=== PATIENT | female | born 2000 | race Two or more races ===

== ENCOUNTER 2024-04-18 20:42 | Emergency (ER) | payer MEDICAID, SELFPAY ==
[2024-04-18 20:46] VITALS: BMI 28.3
--- NOTE | 2024-04-18 21:07 | EKG_ITS ---
[facility] Test Date: 2024-04-18 Pat Name: MORGAN RIOS Department: Room: - Gender: Female [employer] Administrator: : 2000 Requested By: Ugo Dubose ([facility]) Order Number: [id number] Reading MD: Ugo Dubose ([facility]) Measurements Intervals Connell Rate: 139 P: 32 HI: 84 QRS: 37 QRSD: 74 T: 20 QT: 254 QTc: 387 Interpretive Statements SINUS TACHYCARDIA WITH SHORT HI INTERVAL ABNORMAL RHYTHM ECG No previous ECG available for comparison /store/S0/[id number]/ecg/[id number].pdf
[2024-04-18 21:12] VITALS: BP 131/75; PULSE 135; RESP 20; TEMP 39.6; O2SAT 95
--- NOTE | 2024-04-18 21:17 | XR_ITS ---
Examination: PA lateral chest 2 views Technique: Upright PA lateral chest 2 views Exam date and time: April 18, 20242 hrs. Indications: Sepsis protocol. Findings: Normal heart size Lungs are clear The osseous structures are intact Impression: No active disease
--- NOTE | 2024-04-18 21:17 | XR_ITS ---
Examination: CT abdomen and pelvis without contrast. Coronal 3-D reconstructions. Sagittal 2-D reconstructions. Date and time of exam:April 18, 2024 1033 hrs. Indications: Fever right lower abdominal pain right flank pain today CTDI: vol (mGy): 7.04 DLP: (mGycm): 403 Technique: Axial images of the abdomen have been obtained, 3 mm slice thickness Intravenous contrast material has not been administered. Low dose protocols were performed. One or more of the following dose reduction techniques were used; automated exposure control, adjustment of the mA and/or KV according to patient size, use of iterative reconstruction technique. Findings: Diffuse fatty infiltration throughout the liver Contracted gallbladder Spleen not enlarged No pancreatic mass 2 mm nonobstructing right renal calculus, right perinephric stranding Aorta normal size No bowel obstruction No CT findings of appendicitis No diverticulitis Anteverted uterus Mild free fluid in the pelvis Urinary bladder intact Impression: 2 mm nonobstructing right renal calculus Right perinephric stranding with no ureteral calculi, consider right urinary tract infection No CT findings of appendicitis or bowel obstruction
--- NOTE | 2024-04-18 21:43 | PD.EDRME ---
Rapid Medical Screening Exam [facility] Arrival date/time: 04/18/24 20:42 24-year-old female presents emergency department complaining of fever and abdominal pain. She reports taking antibiotics for UTI. Chief Complaint: Abdominal Pain Vital signs: Vital Signs Temperature 103.2 F H 04/18/24 21:12 Pulse Rate 135 H 04/18/24 21:12 Respiratory Rate 20 04/18/24 21:12 Blood Pressure 131/75 H 04/18/24 21:12 Pulse Oximetry (%) 95 04/18/24 21:12 Oxygen Delivery Method Room Air 04/18/24 21:12 Vital signs reviewed by provider: Yes
[2024-04-18 21:54] LABS: Lactate (Lactic Acid) 1.9 mMol/L (0.4-2.0)
[2024-04-18 22:00] VITALS: BP 114/67; PULSE 125; RESP 18; TEMP 39.6; O2SAT 99
[2024-04-18] MEDS: ACETAMINOPHEN 500 MG TABLET 1000 MG PO (22:00)
[2024-04-18 22:02] LABS: Basophils # (Auto) 0.1 Thou/mm3 (0.0-0.2); Basophils % (Auto) 0 % (0-2.5); Eosinophils % (Auto) 0 % (0-10); Hematocrit 35.1 % (36.0-46.0); Hemoglobin 11.6 g/dL (12.0-16.0); Immature Granulocytes % (Auto) 1 % (0-0); Immature Granulocytes Auto 0.07 Thou/mm3 (0.00-0.00); Lymphocytes # (Auto) 1.9 Thou/mm3 (1.0-4.8); Lymphocytes % (Auto) 14 % (10-50); Mean Corpuscular Hemoglobin 27.3 pg (25.0-35.0); Mean Corpuscular Volume 83 fL (80-100); Monocytes # (Auto) 1.3 Thou/mm3 (0.0-0.8); Monocytes % (Auto) 9 % (0-12); Neutrophils # (Auto) 10.9 Thou/mm3 (1.8-7.7); Neutrophils % (Auto) 76 % (37-80); Nucleated Red Blood Cell % 0 /100 WBC (0); Platelet Count 312 Thou/mm3 (140-440); RDW Standard Deviation 38.5 fL (36.4-46.3); Red Blood Count 4.25 Miln/mm3 (4.00-5.20); White Blood Count 14.2 Thou/mm3 (3.6-11.0)
[2024-04-18 22:07] LABS: HCG,Qualitative Serum Negative
[2024-04-18 22:10] LABS: Partial Thromboplastin Time 28.5 Seconds (22.0-36.0); Prothrombin Time 11.4 Seconds (9.0-12.2)
[2024-04-18 22:12] LABS: B-Type Natriuretic Peptide < 20 pg/mL (0-100)
[2024-04-18 22:28] LABS: Alanine Aminotransferase 23 U/L (10-49); Albumin/Globulin Ratio 1.6 (1.2-2.2); Alkaline Phosphatase 77 U/L (46-116); Anion Gap 8 (7-16); Aspartate Amino Transferase 15 U/L (0-34); BUN/Creatinine Ratio 11 Ratio (12-20); Bilirubin,Total 0.5 mg/dL (0.3-1.2); Blood Urea Nitrogen 9 mg/dL (9-23); Calcium 10.3 mg/dL (8.3-10.6); Calcium (Corrected) 10.3 mg/dL (8.5-10.1); Carbon Dioxide 25.1 mMol/L (20.0-31.0); Chloride 101 mMol/L (98-107); Creatinine (Component) 0.8 mg/dL (0.6-1.3); Globulin 3.2 gm/dL (2.3-3.5); Glucose 156 mg/dL (74-106); Lipase 29 U/L (12-53); Magnesium 1.8 mg/dL (1.6-2.6); Osmolality,Calculated 269 (275-295); Phosphorous 1.6 mg/dL (2.4-5.1); Potassium 3.6 mMol/L (3.4-5.1); Procalcitonin 0.21 ng/ml (0.0-0.49); Sodium 134 mMol/L (136-145); Total Protein 8.2 gm/dL (5.7-8.2); Troponin I < 0.002 ng/mL (0.0-0.045); eGFR > 60 See Note
--- NOTE | 2024-04-18 22:46 | EDNOTE_ITS ---
ED General RME/HPI General Chief complaint: Abdominal Pain Stated complaint: FEVER, RIGHT LOWER ABDOMINAL PAIN Time Seen by Provider: 04/18/24 22:22 Arrival date/time: 04/18/24 20:42 RME / HPI RME / HPI narrative: 04/18/24 20:42 24-year-old female presents emergency department complaining of fever and abdominal pain. She reports taking antibiotics for UTI. ------ Dr. Pollock?s Main ED Evaluation: 24yo female with no significant past medical or surgical history presents to the ED for a chief complaint of back pain. Patient states she's had nocturia and frequency for the last 4 days, reporting she goes to the restroom ~3-4x per night. She denies any dysuria, hematuria, foul- smelling urine, N/V/D, runny nose, cough or any other associated symptoms. Denies any tobacco, alcohol or illicit drug use. No known allergies. Related Data Previous Rx's ?Medication ?Instructions ?Recorded cephalexin 500 mg capsule 500 mg PO BID 7 days #14 caps 04/19/24 ondansetron 4 mg disintegrating 4 mg PO Q8H PRN nausea and 04/19/24 tablet vomiting #10 tabs Allergies Allergy/AdvReac Type Severity Reaction Status Date / Time No Known Allergies Allergy Verified 04/18/24 20:47 Review of Systems Review of Systems Systems Reviewed: All systems reviewed, normal except as documented Past Medical History Past Medical History CARDIAC: Negative Congestive Heart Failure RESPIRATORY: Negative Chronic Obstructive Pulmonary Disease (COPD) GENITOURINARY: Negative Renal Disease ENDOCRINE: Negative Diabetes Mellitus Type 1 or Diabetes Mellitus Type 2 Social History SMOKING STATUS: Never smoker ED Exam Narrative Physical exam: GENERAL APPEARANCE: AxOx4, generally well-appearing, no acute distress. HEENT: NC, AT. MMM. EOMI, clear conjunctiva, oropharynx clear. NECK: Supple without lymphadenopathy. No stiffness or restricted ROM. HEART: Normal rate and regular rhythm, normal S1/S1, no m/r/g LUNGS: CTAB, moving air well. No crackles or wheezes are heard. ABDOMEN: Soft, nontender, no anterior abdominal tenderness, nondistended with good bowel sounds heard. BACK: No midline C/T/L spine pain or deformity, Right CVAT, no obvious deformity. EXTREMITIES: Without cyanosis, clubbing or edema. MUSCULOSKELETAL: FROM of all major joints, no chest tenderness NEUROLOGICAL: Grossly nonfocal. Alert and oriented, moving all 4 extremities. CN not formally tested but appear grossly intact. Observed to ambulate with normal gait. Skin: Warm and dry without any rash. Course Course Course Narrative: CXR is ordered for determining the etiology of fever. 2115: Sepsis alert initiated. Orders made at this time are congruent with ED Adult Sepsis Order List. Re-evaluation is to be completed. 2315: NS IVF started. 0043: Sepsis reassessment performed consisting of lab review, vitals, physical exam including auscultation of heart, lungs, and visual evaluation of capillary refills, mucosal membranes and extremities. Quality Measures Current suspected stage: ruled out Possible source: genitourinary Blood cultures ordered: yes Antibiotic ordered: Yes Pertinent labs: 04/18/24 21:36 Lactic Acid 1.9 mMol/L (0.4-2.0) Procalcitonin 0.21 ng/ml (0.0-0.49) sepsis Orders Category Date Time Status Continuous Pulse Oximetry STAT Care 04/18/24 21:17 Completed EKG (ED ONLY) *Do not use* NOW Care 04/18/24 21:[address] abdomen pelvis wo con Stat Exams 04/18/24 21:17 Completed EKG (ED Only) Stat Exams 04/18/24 21:07 Draft XR chest 2V Stat Exams 04/18/24 21:17 Completed B-Type Natriuretic Peptide Stat Lab 04/18/24 21:36 Completed Blood Culture (Lab) Stat Lab 04/18/24 21:41 Received CBC Stat Lab 04/18/24 21:36 Completed Comprehensive Metabolic Panel Stat Lab 04/18/24 21:36 Results HCG,Qualitative Serum Stat Lab 04/18/24 21:36 Results LDH (Lactate Dehydrogenase) Stat Lab 04/18/24 21:36 Results Lactate (Lactic Acid) Stat Lab 04/18/24 21:36 Completed Lipase Stat Lab 04/18/24 21:36 Results Magnesium Stat Lab 04/18/24 21:36 Results Partial Thromboplastin Time Stat Lab 04/18/24 21:36 Completed Phosphorous Stat Lab 04/18/24 21:36 Results Procalcitonin Stat Lab 04/18/24 21:36 Results Prothrombin Time with INR Stat Lab 04/18/24 21:36 Completed Troponin I Stat Lab 04/18/24 21:36 Results Urinalysis, C/S if Indicated Stat Lab 04/18/24 23:08 Completed Urine Culture Stat Lab 04/18/24 23:08 Received Acetaminophen Tab [Tylenol ES Tab] Med 04/18/24 21:18 Discontinued 1,000 mg PO X1 ONE Sodium Chloride 0.9% 1000 ml [Ns] 1,000 ml Med 04/18/24 22:46 Discontinued IV 999 mls/hr cefTRIAXone/D5w 1gm IV premix [Rocephin/D5w 1gm IV Med 04/19/24 00:00 Discontinued premix] 50 ml IV X1 Vital Signs Vital signs: Vital Signs Temperature 103.2 F H 04/18/24 21:12 Pulse Rate 135 H 04/18/24 21:12 Respiratory Rate 20 04/18/24 21:12 Blood Pressure 131/75 H 04/18/24 21:12 Pulse Oximetry (%) 95 04/18/24 21:12 Oxygen Delivery Method Room Air 04/18/24 21:12 Pulse ox is 95% on room air, according to my interpretation. [facility] Patient data External records reviewed:: [facility] previous records (Per chart review, patient has no previous previous ED visits to this facility.) Clinical information provided by:: patient Social determinants that could affect healthcare access:: none Patient has the following chronic illnesses:: none How is presenting disease/condition affected by chronic disease/condition?: no chronic disease Evaluation data The following diagnostics were reviewed and interpreted by me:: lab results, radiology exam(s) and EKG tracing(s) Lab and/or radiology exams considered but not ordered:: none Interpretation Summary: WBC count is elevated at 14.2, Lactate is normal, Magnesium is normal, Lipase is normal, Procalcitonin is normal, troponin is normal, according to my interpretation. EKG done at 1 shows sinus tachycardia, rate of 139, normal intervals, normal axis, no acute ST or T wave changes, no STEMI, according to my interpretation. ------ [facility] Report Signed Patient: MORGAN RIOS [facility]. Record#: [id number] Birthdate: 2000 Age/Sex: 24 / F [facility] Attending Dr: Ordering Physician: Marybel Dubose (BONE DENSITY TECHNICIAN),Ugo BONE DENSITY TECHNICIAN Date of Service: 04/18/24 Procedure(s): XR chest 2V Accession Number(s): [id number] cc: Antonino Colon MD; Marybel Dubose (BONE DENSITY TECHNICIAN),Ugo BONE DENSITY TECHNICIAN~ Examination: PA lateral chest 2 views Technique: Upright PA lateral chest 2 views Exam date and time: April 18, 2024 2122 hrs. Indications: Sepsis protocol. Findings: Normal heart size Lungs are clear The osseous structures are intact Impression: No active disease Dictated By: Antonino Colon MD Signed By: <Electronically signed by Antonino Colon MD in OV> 04/18/242219 ------ [facility] Report Signed Patient: MORGAN RIOS Record#: [id number] Birthdate: 2000 Age/Sex: 24 / F Location: [facility] Attending Dr: Ordering Physician: Marybel Dubose (BONE DENSITY TECHNICIAN)Ugo Date of Service: 04/18/24 Procedure(s): CT abdomen pelvis wo con Accession Number(s): [id number] cc: Antonino Colon MD; Marybel Dubose (BONE DENSITY TECHNICIAN),Ugo BONE DENSITY TECHNICIAN~ Examination: CT abdomen and pelvis without contrast. Coronal 3-D reconstructions. Sagittal 2-D reconstructions. Date and time of exam:April 18, 2024 1033 hrs. Indications: Fever right lower abdominal pain right flank pain today CTDI: vol (mGy): 7.04 DLP: (mGycm): 403 Technique: Axial images of the abdomen have been obtained, 3 mm slice thickness Intravenous contrast material has not been administered. Low dose protocols were performed. One or more of the following dose reduction techniques were used; automated exposure control, adjustment of the mA and/or KV according to patient size, use of iterative reconstruction technique. Findings: Diffuse fatty infiltration throughout the liver Contracted gallbladder Spleen not enlarged No pancreatic mass 2 mm nonobstructing right renal calculus, right perinephric stranding Aorta normal size No bowel obstruction No CT findings of appendicitis No diverticulitis Anteverted uterus Mild free fluid in the pelvis Urinary bladder intact Impression: 2 mm nonobstructing right renal calculus Right perinephric stranding with no ureteral calculi, consider right urinary tract infection No CT findings of appendicitis or bowel obstruction Dictated By: Antonino Colon MD Signed By: <Electronically signed by Antonino Colon MD in OV> 04/18/24 2214 Medications Medications considered but not ordered:: none Medication administrations:: Medication Administration History Discontinued Medications Acetaminophen (Acetaminophen 500 Mg Tablet) 1,000 mg PO X1 ONE Stop: 04/18/24 21:19 Last Admin: 04/18/24 22:00 Dose: 1,000 mg Documented By: VICENTE Sodium Chloride (Ns) 1,000 mls @ 999 mls/hr IV .Q1H1M ONE Stop: 04/18/24 23:46 Last Infusion: 04/19/24 00:13 Dose: Infused Documented By: Admin: 04/18/24 23:15 Dose: 999 mls/hr Documented By: VICENTE Ceftriaxone Sodium/Dextrose (Rocephin/D5w 1gm Iv Premix) 50 mls @ 100 mls/hr IV X1 ONE Stop: 04/19/24 00:29 Last Admin: 04/19/24 00:26 Dose: 100 mls/hr Documented By: VICENTE see above Consultations Consultation(s) initiated? (list below): No Diagnosis Differential Diagnosis ED Complaint MDM: UTI, pyelonephritis, cystitis Most likely diagnosis given after review of the tests above:: pyelonephritis Admission Indicated Admission indicated?: not indicated Explain why admission is indicated or not indicated:: Patient is stable for outpatient antibiotics. Admission Request Was there a request for admission?: No Disposition Plan Disposition Plan: Discharge Discharge Attestation Discharge Attestation: The patient and all family members were given an opportunity to ask questions and understood the discharge instructions. Discharge instructions specifically effects, indications for sooner follow up or return to the emergency department, and the expected course of current diagnosis. Patient condition: Stable Medical Decision Making MDM Narrative MDM Narrative: Scribe Attestation: 04/18/24 Penny Parham, scribing for and in the presence of Dr. Pollock. Differential Diagnosis Differential Diagnosis: UTI, pyelonephritis, cystitis Lab Data 04/18/24 21:36 04/18/24 21:36 Labs: Lab Results 04/18/24 04/18/24 Range/Units 21:36 23:08 WBC 14.2 H (3.6-11.0) Thou/mm3 RBC 4.25 (4.00-5.20) Miln/mm3 Hgb 11.6 L (12.0-16.0) g/dL Hct 35.1 L (36.0-46.0) % MCV 83 (80-100) fL MCH 27.3 (25.0-35.0) pg MCHC 33.0 (31.0-37.0) g/dl RDW Std Deviation 38.5 (36.4-46.3) fL Plt Count 312 (140-440) Thou/mm3 Neut % (Auto) 76 (37-80) % Lymph % (Auto) 14 (10-50) % [place] % (Auto) 9 (0-12) % Eos % (Auto) 0 (0-10) % Baso % (Auto) 0 (0-2.5) % Neut # (Auto) 10.9 H (1.8-7.7) Thou/mm3 Lymph # (Auto) 1.9 (1.0-4.8) Thou/mm3 [place] # (Auto) 1.3 H (0.0-0.8) Thou/mm3 Eos # (Auto) 0.0 (0.0-0.5) Thou/mm3 Baso # (Auto) 0.1 (0.0-0.2) Thou/mm3 Immature Gran # (Auto) 0.07 H (0.00-0.00) Thou/mm3 Absolute Nucleated RBC 0.00 (0.00-0.00) Thou/mm3 Immature Gran % 1 H (0-0) % Nucleated RBC % 0 (0) /100 WBC PT 11.4 (9.0-12.2) Seconds INR 1.0 (0.9-1.3) APTT 28.5 (22.0-36.0) Seconds Sodium 134 L (136-145) mMol/L Potassium 3.6 (3.4-5.1) mMol/L Chloride 101 (98-107) mMol/L Carbon Dioxide 25.1 (20.0-31.0) mMol/L Anion Gap 8 (7-16) BUN 9 (9-23) mg/dL Creatinine 0.8 (0.6-1.3) mg/dL Estim Creat Clear Calc 94.0 (>60) mL/min eGFR > 60 (60 - ) See Note BUN/Creatinine Ratio 11 L (12-20) Ratio Glucose 156 H (74-106) mg/dL Calculated Osmolality 269 L (275-295) Lactic Acid 1.9 (0.4-2.0) mMol/L Calcium 10.3 (8.3-10.6) mg/dL Corrected Calcium 10.3 H (8.5-10.1) mg/dL Phosphorus 1.6 L (2.4-5.1) mg/dL Magnesium 1.8 (1.6-2.6) mg/dL Total Bilirubin 0.5 (0.3-1.2) mg/dL AST 15 (0-34) U/L ALT 23 (10-49) U/L Alkaline Phosphatase 77 (46-116) U/L Troponin I < 0.002 (0.0-0.045) ng/mL B-Natriuretic Peptide < 20 (0-100) pg/mL Total Protein 8.2 (5.7-8.2) gm/dL Albumin 5.0 (3.5-5.0) gm/dL Globulin 3.2 (2.3-3.5) gm/dL Albumin/Globulin Ratio 1.6 (1.2-2.2) Lipase 29 (12-53) U/L Procalcitonin 0.21 (0.0-0.49) ng/ml HCG, Qual Negative Ur Collection Type Clean Catch Urine Color Drk-Yellow A (Lt Yel-Yel) Urine Clarity Turbid A (Clear/Hazy) Urine pH 6.5 (5.0-7.0) Ur Specific Jewett 1.022 (1.001-1.035) Urine Protein 1+ A (Neg - Trace) Urine Glucose (UA) Negative (Negative) Urine Ketones Negative (Negative) Urine Blood Negative (Negative) Urine Nitrite Positive (Negative) Urine Bilirubin 2+ A (Negative) Urine Urobilinogen (Auto) 6.0 (0.0-1.0) mg/dL Ur Leukocyte Esterase Negative (Negative) Urine RBC 24 H (0-3) /hpf Urine WBC 13 H (0-5) /hpf Ur Squamous Epith Cells 5 (0-5) /hpf Urine Bacteria None (None) Ur Culture Indicated? Yes Discharge Plan Plan Patient Disposition: HOME (Self Care) Prescriptions/Referrals Prescriptions/Med Rec: New cephalexin 500 mg capsule 500 mg PO BID 7 Days Qty: 14 0RF ondansetron 4 mg tablet,disintegrating 4 mg PO Q8H PRN (Reason: nausea and vomiting) Qty: 10 0RF Problem List Clinical Impression: Pyelonephritis Patient/Caregiver Discharge Instructions Education Materials: ED Pyelonephritis, Female (Adult) Additional Instructions: Follow-up with your primary care doctor in 2 to 3 days for recheck. You can return to the emergency department sooner symptoms worsen or if you notice any new, concerning issues. Print Language: Palestinian Stand Alone Forms: Olga Award Info., Patient Portal Info Letter
[2024-04-18 23:00] VITALS: BP 110/66; PULSE 114; RESP 16; TEMP 36.8; O2SAT 96
[2024-04-18 23:14] LABS: Collection Type, Urine Clean Catch
[2024-04-18] MEDS: SODIUM CHLORIDE 0.9% 1000 ML 1,000 ML 999 ML IV (23:15)
[2024-04-18 23:16] VITALS: TEMP 37.1
[2024-04-18 23:28] LABS: Bilirubin,Urine 2+ (Negative); Blood,Urine Negative (Negative); Clarity,Urine Turbid (Clear/Hazy); Color,Urine Drk-Yellow (Lt Yel-Yel); Glucose, Urine Negative (Negative); Ketones,Urine Negative (Negative); Leukocyte Esterase,Urine Negative (Negative); Nitrite,Urine Positive (Negative); PH,Urine 6.5 (5.0-7.0); Protein,Urine 1+ (Neg - Trace); RBC,Urine 24 /hpf (0-3); Specific Gravity,Urine 1.022 (1.001-1.035); Squamous Epithelial Cell,Urine 5 /hpf (0-5); WBC,Urine 13 /hpf (0-5)
[2024-04-18 23:42] LABS: Culture Indicated,Urine Yes
[2024-04-19] MEDS: cefTRIAXone/D5w 1gm IV premix 50 ML IV (00:26)
[2024-04-19 01:00] VITALS: BP 100/64; PULSE 109; RESP 16; TEMP 36.8; O2SAT 97
[2024-04-19 01:20] VITALS: BP 100/64; PULSE 109; RESP 16; TEMP 36.8; O2SAT 97
[2024-04-19 02:54] LABS: LDH (Lactate Dehydrogenase) 172 U/L (120-246)
== END 2024-04-19 01:20 | disposition home or self-care (01) ==
PROVIDERS: Emergency Provider Emergency Medicine; PCP Family Medicine
DX: N12 Tubulo-interstitial nephritis, not specified as acute or chronic (principal); N20.0 Calculus of kidney; R00.0 Tachycardia, unspecified
CPT/HCPCS: 36415; 71046; 74176; 80053; 81001; 83605; 83615; 83690; 83735; 83880; 84100; 84145; 84484; 84703; 85025; 85610; 85730; 87040; 87086; 93005; 96361; 96365; 99284; J0696; J7030; A9270

== ENCOUNTER 2025-02-14 18:49 | Emergency (ER) | payer MEDICAID, SELFPAY ==
[2025-02-14 18:51] VITALS: BMI 25.8
[2025-02-14 19:14] VITALS: BP 130/84; PULSE 101; RESP 18; TEMP 37.2; O2SAT 98
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
== END 2025-02-14 21:16 | disposition home or self-care (01) ==
PROVIDERS: Emergency Provider Emergency Medicine
DX: M25.512 Pain in left shoulder (principal); T14.8XXA Other injury of unspecified body region, initial encounter; V89.2XXA Person injured in unspecified motor-vehicle accident, traffic, initial encounter; Y92.410 Unspecified street and highway as the place of occurrence of the external cause
CPT/HCPCS: 71101; 73030; 99283